=== PATIENT | female | born 1965 | race Hispanic/Latino ===

== ENCOUNTER 2017-05-20 08:43 | Inpatient (IN) | payer MEDICARE ==
[2017-05-20] MEDS ORDERED: Sodium Chloride 0.9% 1,000 ML IV STA ×3 (08:52→10:58)
--- NOTE | 2017-05-20 08:55 | ED PDOC ---
Arrival/HPI - General Chief Complaint: Altered Mental Status Time Seen by Provider: 05/20/17 08:44 Historian: Patient, EMS EM Caveat: Intoxicated - History of Present Illness Narrative History of Present Illness (Text): 05/20/17 08:57 pt was found outside of someone's property/house; pt was found walking on her socks; pt states she had been drinking alcohol and she nearly drinks daily; pt states she is not suicidal/homicidal; pt denied hallucinations - visual/tacile/ auditory; pt was found altered by EMS; pt arrived to ED shivering but responsive ; pt states no other medical complaints currently; pt is here for further eval. pt denied cp/sob/abd pain pt denied fall/trauma/sick contact 05/23/17 17:19 Time/Duration: Prior to Arrival Symptom Onset: Sudden Symptom Course: Unchanged Severity Level: Severe Activities at Onset: Rest Context: Street Past Medical History - Provider Review Nursing Documentation Reviewed: Yes - Travel History Have you recently traveled outside [place] w/in the past 3 mons?: No - Infectious Disease Hx of Infectious Diseases: None - Tetanus Immunization Tetanus Immunization: Unknown - Cardiac Hx Hypertension: No - Pulmonary Hx Tuberculosis: No - Neurological HX Cerebrovascular Accident: No Hx Seizures: No - Hematological/Oncological Hx Cancer: No Hx Hepatitis C: Yes - Genitourinary/Gynecological Hx Sexually Transmitted Diseases: No - Psychiatric Hx Psychophysiologic Disorder: No Hx Anxiety: No Hx Bipolar Disorder: Yes Hx Depression: Yes Hx Emotional Abuse: No Hx Hallucinations: No Hx Panic Disorder: No Hx Post Traumatic Stress Disorder: No Hx Psychosis: No Hx Physical Abuse: No Hx Schizophrenia: No Hx Sexual Abuse: No Hx Substance Use: No - Anesthesia Hx Anesthesia: No Hx Anesthesia Reactions: No Hx Malignant Hyperthermia: No - Suicidal Assessment Feels Threatened In Home Enviroment: No Family/Social History - Physician Review Nursing Documentation Reviewed: Yes Family/Social History: Unknown Family HX Smoking Status: Heavy Smoker > 10 Cigarettes Daily Hx Alcohol Use: Yes Hx Substance Use: No Hx Substance Use Treatment: No Allergies/Home Meds Allergies/Adverse Reactions: Allergies No Known Allergies Allergy (Verified 06/07/15 08:25) Home Medications: Home Meds Medication Instructions Recorded Confirmed ALPRAZolam [Xanax] 1 mg PO TID 03/17/13 05/20/17 Carbamazepine [Tegretol] 200 mg PO BID 03/17/13 05/20/17 Ziprasidone [Geodon] 120 mg PO HS 03/17/13 05/20/17 Escitalopram [Lexapro] 20 mg PO HS 01/09/14 05/20/17 Famotidine [Pepcid] 20 mg PO BID 05/20/17 05/20/17 Ibuprofen [Motrin] 600 mg PO Q6 05/20/17 05/20/17 Review of Systems - Review of Systems Constitutional: Fatigue Eyes: Normal ENT: Normal Respiratory: Normal Cardiovascular: Normal Gastrointestinal: Normal Genitourinary Female: Normal Musculoskeletal: Normal Skin: Normal Neurological: Normal Endocrine: Normal Hemo/Lymphatic: Normal Psychiatric: Normal Physical Exam Vital Signs Reviewed: Yes (severe hypothermia) Vital Signs Temp Pulse Resp BP Pulse Ox 05/20/17 11:00 91.9 F L 85 20 126/55 L 99 05/20/17 10:17 89.6 F L 83 20 123/57 L 100 05/20/17 09:54 83 20 136/49 L 97 05/20/17 09:47 83 20 125/65 89 L 05/20/17 09:12 86.9 F L 76 14 126/98 H 100 05/20/17 09:05 89.6 F L 83 20 136/49 L 90 L Temperature: Hypothermic (rectal temp 86) Blood Pressure: Normal Pulse: Tachycardic Respiratory Rate: Normal Appearance: Positive for: Well-Appearing, Other (uncomfortable, intermittently shivering; alert/awake, cooperative, resting in bed) Pain Distress: Severe Mental Status: Positive for: other (altered, but cooperative, pt is easily arousable to voice; + uncomfortable, + moderate/severe distress) - Systems Exam Head: Present: Atraumatic, Normocephalic Pupils: Present: PERRL, Other (non-pinpoint; no nystagmus, no photophobia) Extroacular Muscles: Present: EOMI Conjunctiva: Present: Normal Mouth: Present: Other (dry oral mucosa, no tongue lacerations) Pharnyx: Present: Normal Neck: Present: Trachea Midline, Other (intact ROM, no step off, no gross deformities). No: MIDLINE TENDERNESS Respiratory/Chest: Present: Clear to Auscultation, Good Air Exchange, Other ( CTA b/l, no w/r/r, no tachypenia, no accessory muscle use noted) Cardiovascular: Present: Normal S1, S2, Other (+ tachycardia, no murmur) Abdomen: Present: Normal Bowel Sounds, Other (well nourished female, no focal tenderness, no masses/rebound/guarding/rigidity) Back: Present: Normal Inspection. No: CVA Tenderness Upper Extremity: Present: Normal Inspection, NORMAL PULSES, Other (strength 5-/ 5 in all limbs, neurovasc intact b/l) Lower Extremity: Present: Normal Inspection, NORMAL PULSES, Other (neurovasc intact b/l) Neurological: Present: Other (GCS ~ 14) Skin: Present: Other (cold to touch, dry, noted dry scabs throughout b/l forearm , b/l feet, no gross bleeding noted, no lacerations noted) Psychiatric: Present: Alert Medical Decision Making ED Course and Treatment: 05/20/17 09:05 Impression: sepsis; hypothermia; alcohol/drug intoxication; depressive state? i have consider all the differential diagnosis regarding pt's chief medical complaints/clinical findings, including but are not limited to: sepsis, hypothermia, alcohol/drug intoxication, depressive state A/P: hypothermia, alcohol exposure - labs - cultures - iv - labs - ua - ekg - xray - observe - supportive care CODE sepsis activated 05/20/17 10:23 Case discussed with ICU attending, whom has been made aware of patient's complaints. Recommends continued IV Fluids and agree with emergency department management. States will arrive to evaluate patient in 30 minutes. 05/20/17 11:[address] Shrestha, hospitalist, whom has been made aware of patient' s medical complaints. Agrees with emergency department management and diagnosis and approves for emergency department disposition to ICU admission. 05/20/2017 10:55 Chest X-ray IMPRESSION: No acute consolidation. Dictator: Daniel Sloan DO 05/23/17 17:22 pt is made aware of her medical results pt is warming up well pt agrees with admission ICU will accept pt to the ICU Re-evaluation Time: 14:00 Reassessment Condition: Improving,but remains with symptoms - Critical Care Critical Care Minutes: 45 minutes Critical Care Time: Excluding Proc Time Narrative Critical Care (Text): 05/23/17 17:23 critical care time: 45min, excluding procedure time, excluding time teaching residents/students/mid-level providers; including initial eval/diagnosis, diagnostic interpretation, re-eval, consultations, final disposition - Lab Interpretations Microbiology Results: Microbiology Results 05/20/17 09:00 Blood Blood Culture - Preliminary NO GROWTH AFTER 3 DAYS 05/20/17 08:45 Blood Blood Culture - Preliminary NO GROWTH AFTER 3 DAYS 05/20/17 09:21 Urine,Catheterized Urine Culture - Final No Growth (<1,000 CFU/ML) Lab Results: 05/20/17 08:45 05/20/17 09:20 Lab Results 05/20/17 09:21: Urine Opiates Screen Negative, Urine Methadone Screen Negative, Ur Barbiturates Screen Negative, Ur Phencyclidine Scrn Negative, Ur Amphetamines Screen Negative, U Benzodiazepines Scrn Positive, U Oth Cocaine Metabols Negative, U Cannabinoids Screen Negative 05/20/17 09:21: Urine HCG, Qual Negative 05/20/17 09:21: Urine Color Yellow, Urine Appearance Clear, Urine pH 6.0, Ur Specific [place] >= 1.030, Urine Protein Trace H, Urine Glucose (UA) 100 H, Urine Ketones Negative, Urine Blood Negative, Urine Nitrate Negative, Urine Bilirubin Negative, Urine Urobilinogen 0.2, Ur Leukocyte Esterase Negative, Urine RBC Negative, Urine WBC 1 - 3, Ur Epithelial Cells 3 - 4, Urine Bacteria Few, Hyaline Casts 0 - 2 05/20/17 09:20: Sodium 140, Chloride 111 H, Potassium 4.2, Carbon Dioxide 21, Anion Gap 12, BUN 16, Creatinine 0.5 L, Est GFR ( Amer) > 60, Est GFR ( Non-Af Amer) > 60, Random Glucose 90, Calcium 8.8, Phosphorus 3.2, Magnesium 2.0 , Total Bilirubin 0.3, AST 32, ALT 38, Alkaline Phosphatase 76, Troponin I < 0.01, NT-Pro-B Natriuret Pep 40.6, Total Protein 7.0, Albumin 3.9, Globulin 3.1 , Albumin/Globulin Ratio 1.3 05/20/17 09:20: pO2 70 H, VBG pH 7.32, VBG pCO2 41.0, VBG HCO3 21.1, VBG Total CO2 22.4, VBG O2 Sat (Calc) 94.2 H, VBG Base Excess -4.8 L, VBG Potassium 4.1, Sodium 140.0, Chloride 110.0 H, Glucose 92, Lactate 2.1, FiO2 21.0, Venous Blood Potassium 4.1 05/20/17 09:20: PT 10.7, INR 0.97, APTT 27.3 05/20/17 08:45: Alcohol, Quantitative < 10 05/20/17 08:45: Salicylates < 1 L, Acetaminophen < 10.0 L 05/20/17 08:45: Carbamazepine < 3 L 05/20/17 08:45: WBC 8.7, RBC 4.78, Hgb 14.8, Hct 44.5, MCV 93.1, MCH 31.0, MCHC 33.3, RDW 14.3, Plt Count 214, MPV 9.4, Gran % 78.0 H, Lymph % (Auto) 15.3 L, Stone % (Auto) 6.0, Eos % (Auto) 0.5 L, Baso % (Auto) 0.2, Gran # 6.81 H, Lymph # 1.3, Stone # 0.5, Eos # 0.0, Baso # 0.02 WNL I have reviewed the lab results: Yes Interpretation: All labs normal - RAD Interpretation Radiology Orders: 05/20/17 08:50 CHEST PORTABLE [RAD] Stat NAD Wine Specialist: Radiologist - EKG Interpretation EKG Interpretation (Text): 05/23/17 17:25 Sinus rhythm at 75 bpm, poor baseline, normal axis, + ectopy, non-specific st-t changes, ABNL EKG; no gross changes compare with old ekg 12/201305/23/17 17:27 Interpreted by ED Physician: Yes Type: 12 lead EKG Comparison: Similar to previous EKG - Medication Orders Current Medication Orders: Discontinued Medications Alprazolam (Xanax) 1 mg PO TID [facility] PRN Reason: Protocol Last Admin: 05/21/17 10:08 Dose: 1 mg Enoxaparin Sodium (Lovenox) 40 mg SC DAILY [facility] PRN Reason: Protocol Last Admin: 05/21/17 10:03 Dose: 40 mg Subcutaneous Administrations Document 05/21/17 10:03 DEL (Rec: 05/21/17 10:04 DEL [facility] [id number]) Charges for Administration # of Subcutaneous Administrations 1 Escitalopram Oxalate (Lexapro) 20 mg PO HS [facility] Last Admin: 05/21/17 00:30 Dose: Not Given Non-Admin Reason: Patient Asleep Hydrocortisone Sodium Succinate (Solu-Cortef) 50 mg IVP ONCE ONE Stop: 05/20/17 10:55 Last Admin: 05/20/17 11:12 Dose: 50 mg IVP Administration Document 05/20/17 11:12 SRE (Rec: 05/20/17 11:12 SRE [id number]) Charges for Administration # of IVP Administrations 1 Hydrocortisone Sodium Succinate (Solu-Cortef) 50 mg IVP Q6 [facility] Last Admin: 05/21/17 05:09 Dose: 50 mg IVP Administration Document 05/21/17 05:09 SRE (Rec: 05/21/17 05:09 SRE [facility] [id number]) Charges for Administration # of IVP Administrations 1 Sodium Chloride (Sodium Chloride 0.9%) 1,000 mls @ 999 mls/hr IV .Q1H1M STA Stop: 05/20/17 09:52 Last Admin: 05/20/17 09:29 Dose: 999 mls/hr eMAR Start Stop Document 05/20/17 09:29 SRE (Rec: 05/20/17 09:31 SRE [id number]) Intravenous Solution Start Date 05/20/17 Start Time 09:00 End Date 05/20/17 End time 10:00 Total Infusion Time 60 Sodium Chloride (Sodium Chloride 0.9%) 1,000 mls @ 999 mls/hr IV .Q1H1M STA Stop: 05/20/17 11:25 Last Admin: 05/20/17 10:25 Dose: 999 mls/hr eMAR Start Stop Document 05/20/17 10:25 SRE (Rec: 05/20/17 10:35 SRE [id number]) Intravenous Solution Start Date 05/20/17 Start Time 10:25 End Date 05/20/17 End time 11:25 Total Infusion Time 60 Sodium Chloride (Sodium Chloride 0.9%) 1,000 mls @ 999 mls/hr IV .Q1H1M STA Stop: 05/20/17 11:58 Last Admin: 05/20/17 11:00 Dose: 999 mls/hr eMAR Start Stop Document 05/20/17 11:00 SRE (Rec: 05/20/17 11:12 SRE [id number]) Intravenous Solution Start Date 05/20/17 Start Time 11:00 End Date 05/20/17 End time 12:00 Total Infusion Time 60 Folic Acid 1 mg/ Thiamine HCl 100 mg/ Multivitamins/Vitamin C 10 ml/ Dextrose 1 ,011.2 mls @ 100 mls/hr IV .Q10H7M [facility] Last Admin: 05/21/17 00:21 Dose: 100 mls/hr eMAR Start Stop Document 05/21/17 00:21 SRE (Rec: 05/21/17 00:21 SRE [facility] [id number]) Intravenous Solution Start Date 05/21/17 Start Time 00:21 Pantoprazole Sodium (Protonix Ec Tab) 40 mg PO DAILY [facility] Last Admin: 05/21/17 10:03 Dose: 40 mg Pneumococcal Polyvalent Vaccine (Pneumovax 23 Vaccine) 0.5 ml IM .ONCE ONE Stop: 05/20/17 13:47 Disposition/Present on Arrival - Present on Arrival Any Indicators Present on Arrival: No History of DVT/PE: No History of Uncontrolled Diabetes: No Urinary Catheter: No History Surgical Site Infection Following: None - Disposition Have Diagnosis and Disposition been Completed?: Yes Diagnosis: Hypothermia, High risk for sepsis, Weakness Disposition: HOSPITALIZED Disposition Time: 12:00 Patient Plan: ICU Condition: FAIR
[2017-05-20 09:20] LABS: BASO # 0.02 K/mm3 (0.0-2.0); BASO % 0.2 % (0.0-3.0); EOS % 0.5 % (1.5-5.0); GRAN # 6.81 (1.4-6.5); HEMOGLOBIN 14.8 g/dL (12.0-16.0); LYMPH # 1.3 (1.2-3.4); LYMPH % 15.3 % (22.0-35.0); MEAN CELL VOLUME 93.1 fl (80.0-105.0); MEAN CORPUSCULAR HGB CONC 33.3 g/dl (31.0-37.0); MEAN PLATELET VOLUME 9.4 fl (7.0-11.0); MONO # 0.5 (0.1-0.6); RBC 4.78 10^6/uL (3.5-6.1); RED CELL DISTRIBUTION WIDTH 14.3 % (11.5-14.5); WHITE BLOOD COUNT 8.7 10^3/ul (4.5-11.0)
[2017-05-20 09:28] LABS: ACETAMINOPHEN < 10.0 ug/ml (10.0-20.0); SALICYLATE < 1 mg/dL (2.0-20.0)
[2017-05-20 09:30] LABS: URINE BILIRUBIN NEGATIVE (NEGATIVE); URINE BLOOD NEGATIVE (NEGATIVE); URINE GLUCOSE (UA) 100 mg/dL (NEGATIVE); URINE LEUKOCYTE ESTERASE NEGATIVE Leu/uL (NEGATIVE); URINE NITRATE NEGATIVE (NEGATIVE); URINE PROTEIN TRACE mg/dL (<30 mg/dL); URINE UROBILINOGEN 0.2 E.U./dL (<1 E.U./dL)
[2017-05-20 09:37] LABS: URINE APPEARANCE CLEAR (CLEAR); URINE COLOR YELLOW (YELLOW)
[2017-05-20 09:45] LABS: ALB/GLOB RATIO 1.3 (1.1-1.8); ALBUMIN 3.9 g/dL (3.0-4.8); ALT/SGPT 38 U/L (7-56); AST/SGOT 32 U/L (14-36); BLOOD UREA NITROGEN 16 mg/dL (7-21); CALCIUM 8.8 mg/dL (8.4-10.5); GFR AFRICAN-AMERICAN > 60; GFR NON-AFRICAN AMERICAN > 60
[2017-05-20 09:48] LABS: URINE BACTERIA FEW (NEG); URINE HYALINE CAST 0 - 2 /hpf; URINE RBC NEGATIVE /hpf (0-2)
[2017-05-20 09:54] LABS: BENZODIAZEPINES, UR POSITIVE (NEGATIVE); OPIATES, UR NEGATIVE (NEGATIVE); PHENCYCLIDINE, UR NEGATIVE (NEGATIVE)
[2017-05-20 09:54] LABS: INR 0.97 (0.93-1.08); PARTIAL THROMBOPLASTIN TIME 27.3 Seconds (25.1-36.5); PROTHROMBIN TIME 10.7 SECONDS (9.4-12.5)
[2017-05-20 09:55] LABS: BARBITURATES, UR NEGATIVE (NEGATIVE)
[2017-05-20 09:57] LABS: B-TYPE NATRIURETIC PEPTIDE 40.6 pg/mL (0-450); TROPONIN I < 0.01 ng/mL
[2017-05-20 10:00] LABS: VENOUS BLOOD GAS BASE EXCESS -4.8 mmol/L (0.0-2.0); VENOUS BLOOD GAS PO2 70 mm/Hg (30-55); VENOUS BLOOD PH 7.32 (7.32-7.43)
--- NOTE | 2017-05-20 10:57 | RAD ---
HISTORY: Sepsis Patient COMPARISON: Comparison made with chest radiograph performed as part of a bilateral rib series dated 06/07/2015. . FINDINGS: LUNGS: No active pulmonary disease. PLEURA: No significant pleural effusion identified, no pneumothorax apparent. CARDIOVASCULAR: Heart size is upper limits of normal. OSSEOUS STRUCTURES: Old healed left 7th rib fracture poorly seen compared to prior exam VISUALIZED UPPER ABDOMEN: Normal. OTHER FINDINGS: None. IMPRESSION: No acute consolidation
--- NOTE | 2017-05-20 11:30 | CARD ---
APPROVED REPORT EKG Measurement Heart [id number] <Conclusion> Sinus rhythm with premature atrial complexes with aberrant conduction Prolonged QT Abnormal ECG
[2017-05-20 12:56] LABS: VENOUS BLOOD GAS PO2 56 mm/Hg (30-55); VENOUS BLOOD PH 7.28 (7.32-7.43)
--- NOTE | 2017-05-20 13:03 | CP.PCM.CON ---
History of Present Illness - History of Present Illness History of Present Illness: Critical Care Consult Note HPI: Patient is 51yo female with PMhx of Psych disorder, ?seizure disorder, presents after EMS was called for AMS. Patient was found walking outside in her socks, unclear as ot amount of clothing she had on. Upon arrival to the ER patient noted to be hypothermic, 86.9 rectal temp, placed on bear hugger and given 2L warmed NS. Pt is currently awake, alert, answers appropriately, rectal temp improving on bear hugger. Denies fever, chills, chest pain, sob, palpitations, LANE, dizziness. No other constitutional symptoms PMHx as above PSHx as above Meds as per EMR Allergies NKDA ROS as per HPI FHx NC Review of Systems - Review of Systems Review of Systems: as per HPI Past Patient History - Infectious Disease Hx of Infectious Diseases: None - Tetanus Immunizations Tetanus Immunization: Unknown - Past Social History Smoking Status: Heavy Smoker > 10 Cigarettes Daily - CARDIAC Hx Hypertension: No - PULMONARY Hx Tuberculosis: No - NEUROLOGICAL HX Cerebrovascular Accident: No Hx Seizures: No - HEMATOLOGICAL/ONCOLOGICAL Hx Cancer: No Hx Hepatitis C: Yes - GENITOURINARY/GYNECOLOGICAL Hx Sexually Transmitted Disorders: No - PSYCHIATRIC Hx Psychophysiologic Disorder: No Hx Anxiety: No Hx Bipolar Disorder: Yes Hx Depression: Yes Hx Emotional Abuse: No Hx Hallucinations: No Hx Panic Symptoms: No Hx Post Traumatic Stress Disorder: No Hx Psychosis: No Hx Physical Abuse: No Hx Schizophrenia: No Hx Sexual Abuse: No Hx Substance Use: No - ANESTHESIA Hx Anesthesia: No Hx Anesthesia Reactions: No Hx Malignant Hyperthermia: No Meds Allergies/Adverse Reactions: Allergies Allergy/AdvReac Type Severity Reaction Status Date / Time No Known Allergies Allergy Verified 06/07/15 08:25 - Medications Medications: Current Medications Enoxaparin Sodium (Lovenox) 40 mg SC DAILY [facility] PRN Reason: Protocol Hydrocortisone Sodium Succinate (Solu-Cortef) 50 mg IVP Q6 [facility] Folic Acid 1 mg/ Thiamine HCl 100 mg/ Multivitamins/Vitamin C 10 ml/ Dextrose 1 ,011.2 mls @ 100 mls/hr IV .Q10H7M [facility] Pantoprazole Sodium (Protonix Ec Tab) 40 mg PO DAILY [facility] Physical Exam - Constitutional Appears: Well, Non-toxic, No Acute Distress - Head Exam Head Exam: NORMAL INSPECTION - Eye Exam Eye Exam: EOMI, Normal appearance - ENT Exam ENT Exam: Mucous Membranes Moist - Neck Exam Neck exam: Positive for: Normal Inspection - Respiratory Exam Respiratory Exam: Clear to Auscultation Bilateral, NORMAL BREATHING PATTERN - Cardiovascular Exam Cardiovascular Exam: REGULAR RHYTHM, +S1, +S2 - GI/Abdominal Exam GI & Abdominal Exam: Normal Bowel Sounds, Soft - Extremities Exam Extremities exam: Positive for: normal inspection - Neurological Exam Neurological exam: Alert, Reflexes Normal Results - Vital Signs Recent Vital Signs: Last Vital Signs Temp 95.4 F L 05/20/17 12:50 Pulse 96 H 05/20/17 12:50 Resp 18 05/20/17 12:50 BP 126/55 L 05/20/17 11:00 Pulse Ox 97 05/20/17 12:50 - Labs Result Diagrams: 05/20/17 08:45 05/20/17 09:20 Labs: Laboratory Results - last 24 hr 05/20/17 11:16 TSH 3rd Generation 1.20 - Imaging and Cardiology Chest x-ray Status: Image reviewed by me, Report reviewed by me Assessment & Plan - Assessment and Plan (Free Text) Assessment: 51yo female a/w hypothermia Hypothermia - currently temp 94.3, improving with bear hugger and warmed NS - patient is awake, alert, answers quesitons appropriately - no overt evidence of infection, normal WBC, Lactate, CXR no consolidation, UA negative, denies fever, chills, cough, dysuria - labs noted - CXR no consolidation Recommend: - supp o2 as needed - leon culture, UCx, BCx, Check Procalcitonin - BP control - IV hydration - check TSH, Free T3, T4, cortisol level - SoluCortef 50mg IV Q6hr - psych consult - confirm home meds - monitor in MICU Critical care time 35 minutes
[2017-05-20] MEDS: Enoxaparin 40 mg Syringe SC SCH (13:14)
[2017-05-20] MEDS: Folic Acid 1 MG, Thiamine 100 MG, Multivitamin (MVI) 10 ML in Dextrose 5% In Water 1,00... IV SCH (13:14)
--- NOTE | 2017-05-20 13:32 | CP.PCM.HP ---
<Lindsay Rojas - Last Filed: 05/20/17 14:15> History of Present Illness - History of Present Illness History of Present Illness: PGY-2 H&P for Hospitalist service 51 yo female with PMH of bipolar, schizopheria disorder, and questionable thyroid disorder, presents after EMS was called for AMS. Patient was found outside of someone's house; she was found walking on her socks and it is unclear as to amount of clothing she had on. Patient stated she had been drinking alcohol and had 3 beers last night. She state that she drinks at least 3 times a weeks. Patient states that she does not recall what happened last night, however she states that she has a history of sleep walking. Patient does have history of hallucination however does not recall any from last night. Upon arrival to the ER patient noted to be hypothermic, 86.9 rectal temp, placed on bear hugger and given 3L warmed NS. Rectal temp improving on bear hugger. Denies fever, chills, chest pain, sob, palpitations, LANE, dizziness. No other constitutional symptoms. Daughter is at bedside. PMH: psh: right knee social history: smokes 10 cig/day, quit 1 week ago, drinks 3-5 beers about 3 times per week, denies illicit drug use family history: mother lung ca, father pancreatic ca allergy: nkda home meds: unsure, will call pharmacy Present on Admission - Present on Admission Any Indicators Present on Admission: No Review of Systems - Constitutional Constitutional: absent: Chills, Fever, Headache, Weight Gain, Weight Loss - EENT Eyes: absent: Change in Vision Nose/Mouth/Throat: absent: Nasal Congestion, Sore Throat - Cardiovascular Cardiovascular: absent: Chest Pain, Irregular Heart Rhythm, Palpitations - Respiratory Respiratory: absent: Cough, Dyspnea - Gastrointestinal Gastrointestinal: absent: Abdominal Pain, Constipation, Diarrhea, Nausea, Vomiting - Genitourinary Genitourinary: absent: Change in Urinary Stream, Difficulty Urinating, Dysuria - Musculoskeletal Musculoskeletal: absent: Arthralgias, Back Pain, Neck Pain, Numbness, Stiffness , Tingling - Integumentary Integumentary: absent: Pruritus, Rash, Skin Ulcer, Striae, Swelling - Neurological Neurological: absent: Dizziness, Numbness, Headaches, Syncope, Weakness - Psychiatric Psychiatric: Abnormal Sleep Pattern, Hallucinations - Hematologic/Lymphatic Hematologic: absent: Easy Bleeding, Easy Bruising Past Patient History - Infectious Disease Hx of Infectious Diseases: None - Tetanus Immunizations Tetanus Immunization: Unknown - Past Social History Smoking Status: Heavy Smoker > 10 Cigarettes Daily - CARDIAC Hx Hypercholesterolemia: Yes (daughter thinks she may have it under control) Hx Hypertension: No Hx Peripheral Edema: Yes (ble +1) - PULMONARY Hx Tuberculosis: No - NEUROLOGICAL HX Cerebrovascular Accident: No Hx Seizures: No - ENDOCRINE/METABOLIC Hx Hypothyroidism: Yes (daughter thinks she may have) Other/Comment: pt's daughter thinks she has hypothroidism, but thyroid medication not on home medication list, unknown if med list is current and daughter does not know what pharmacy the pt fills her meds - HEMATOLOGICAL/ONCOLOGICAL Hx Hepatitis C: Yes - INTEGUMENTARY Other/Comment: dry scabs and multiple skin discoloratins b/l arms, dry scabs b/ l forearms, dry scabs b/l feet and legs, redness r knee, abrasion left knee, frostbite to buttocks, redness noted to right buttock and posterior upper thigh , redness to left buttocks from frostbite, right more than left, tatoo - MUSCULOSKELETAL/RHEUMATOLOGICAL Hx Fractures: Yes (wrist ,daughter unsure which one) Hx Unsteady Gait: Yes - GASTROINTESTINAL Hx Gastroesophageal Reflux: Yes - GENITOURINARY/GYNECOLOGICAL Hx Genitourinary Disorders: Yes (neg mammo 05/23/16 as per daughter) Hx Incontinence: Yes Other/Comment: cervical nabothian cyst as per transvaginal ultrasound from , daughter thinks pt may have had surgery to remove fibroids - PSYCHIATRIC Hx Psychophysiologic Disorder: No Hx Anxiety: No Hx Bipolar Disorder: Yes Hx Depression: Yes Hx Emotional Abuse: No Hx Hallucinations: No Hx Panic Symptoms: No Hx Post Traumatic Stress Disorder: No Hx Psychosis: No Hx Physical Abuse: No Hx Schizophrenia: No Hx Sexual Abuse: No Other/Comment: drinks daily, what and how much unknown daughter stated "She wouldn't tell me anyway." pt is a smoker - SURGICAL HISTORY Hx Orthopedic Surgery: Yes Other/Comment: daughter thinks pt may have had sx to remove fibroids, arthoscopic knee sx over 20 yrs ago daughter unsure which one - ANESTHESIA Hx Anesthesia: No Hx Anesthesia Reactions: No Hx Malignant Hyperthermia: No Meds Allergies/Adverse Reactions: Allergies Allergy/AdvReac Type Severity Reaction Status Date / Time No Known Allergies Allergy Verified 06/07/15 08:25 Physical Exam - Constitutional Appears: No Acute Distress - Head Exam Head Exam: ATRAUMATIC, NORMAL INSPECTION, NORMOCEPHALIC - Eye Exam Eye Exam: EOMI, Normal appearance - ENT Exam ENT Exam: Mucous Membranes Moist - Respiratory Exam Respiratory Exam: Clear to Auscultation Bilateral, NORMAL BREATHING PATTERN. absent: Decreased Breath Sounds, Rales, Rhonchi, Wheezes, Respiratory Distress - Cardiovascular Exam Cardiovascular Exam: REGULAR RHYTHM, +S1, +S2. absent: Tachycardia, Systolic Murmur - GI/Abdominal Exam GI & Abdominal Exam: Normal Bowel Sounds, Soft. absent: Diminished Bowel Sounds , Distended, Firm, Tenderness - Extremities Exam Extremities exam: Positive for: normal inspection. Negative for: pedal edema, tenderness - Neurological Exam Neurological exam: Alert, CN II-XII Intact, Oriented x3 - Skin Skin Exam: Dry, Intact, Normal Color, Warm Results - Vital Signs Recent Vital Signs: Last Vital Signs Temp 95.4 F L 05/20/17 12:50 Pulse 96 H 05/20/17 12:50 Resp 18 05/20/17 12:50 BP 126/55 L 05/20/17 11:00 Pulse Ox 97 05/20/17 12:50 - Labs Result Diagrams: 05/20/17 08:45 05/20/17 09:20 Labs: Laboratory Results - last 24 hr 05/20/17 05/20/17 11:16 12:40 pO2 56 H VBG pH 7.28 L VBG pCO2 44.0 VBG HCO3 20.7 L VBG Total CO2 22.1 VBG O2 Sat (Calc) 90.2 H VBG Base Excess -6.0 L VBG Potassium 3.6 Sodium 143.0 Chloride 114.0 H Glucose 99 Lactate 1.4 FiO2 21.0 TSH 3rd Generation 1.20 Venous Blood Potassium 3.6 Assessment & Plan - Assessment and Plan (Free Text) Assessment: 51 yo female with PMH of bipolar, schizopheria disorder, and questionable thyroid disorder, presents for AMS and hypothermia after being found outside, most likely due to exposure with complication of alcohol use Plan: 1. hypothermia and AMS - most likely due to exposure with complication of alcohol use vs infection vs thyroid - patient received 3L of IVF and was placed on kathleen hugger in ED - TSH within normal limits 1.2 - no leukocytosis, lactate mildly elevated at 2.1, UA and cxr are neg - currently no source of infection - continue solu-cortef 50mg q6 per icu - blood and urine cultures pending 2. alcohol withdrawal - banana bag @100 - ciwa protocol - will hold ativan from now until patient is more response and is withdrawing 3. h/o psych disorders - will call pharmacy for home meds, will continue once speech and swallow evaluation - consider psych eval once patient more alert GI ppx- protonix DVT ppx- lovenox <Norman Arthur - Last Filed: 05/20/17 15:11> Results - Vital Signs Recent Vital Signs: Last Vital Signs Temp 96.8 F L 05/20/17 13:30 Pulse 93 H 05/20/17 13:30 Resp 16 05/20/17 13:30 BP 121/80 05/20/17 13:22 Pulse Ox 100 05/20/17 13:30 - Labs Result Diagrams: 05/20/17 08:45 05/20/17 09:20 Labs: Laboratory Results - last 24 hr 05/20/17 05/20/17 11:16 12:40 pO2 56 H VBG pH 7.28 L VBG pCO2 44.0 VBG HCO3 20.7 L VBG Total CO2 22.1 VBG O2 Sat (Calc) 90.2 H VBG Base Excess -6.0 L VBG Potassium 3.6 Sodium 143.0 Chloride 114.0 H Glucose 99 Lactate 1.4 FiO2 21.0 TSH 3rd Generation 1.20 Venous Blood Potassium 3.6 Attending/Attestation - Attestation I have personally seen and examined this patient.: Yes I have fully participated in the care of the patient.: Yes I have reviewed all pertinent clinical information: Yes Notes (Text): 05/20/17 15:06 51 year old female with past medical history of ?bipolar/schizophrenia who presented with altered mental status and hypothermia after being found outside. She is admitted to ICU. Currently on bear hugger and warmed NS. Her temperature is slowly improving. TSH was normal. No obvious signs of infection (negative UA/CXR, normal lactate and wbc). Will follow up on cultures. Urine drug screen was positive for benzodiazepines. Alcohol level was negative. Continue with stress dose of steroids as per hospital recruiter. Will likely need psychiatry evaluation once patient is more alert. Will need to verify home medications with family +/- pharmacy. Monitor for withdrawal symptoms. Norman Arthur MD Hospitalist.
[2017-05-20 13:45] VITALS: BMI 32.0
[2017-05-20] MEDS ORDERED: Pneumococcal 23-Valent Vaccine IM ONE (13:46)
[2017-05-20] MEDS ORDERED: Influenza Vaccine 60 mcg/0.5 mL SYR (4YR UP) IM ONE (13:46)
--- NOTE | 2017-05-20 14:59 | PCM.SEPTIC ---
Sepsis Progress Note - Reassessment Type Date of Evaluation: 05/20/17 Time of Evaluation: 02:00 Reassessment Type: Non-invasive reassessment - Non Invasive Reassessment Were the most recent vital sign reviewed: Yes Vital Sign (Latest): Temp Pulse Resp BP Pulse Ox 96.8 F L 93 H 16 121/80 100 05/20/17 13:30 05/20/17 13:30 05/20/17 13:30 05/20/17 13:22 05/20/17 13:30 Cardiovascular: Yes: Regular Rate, Rhythm, Chest Non Tender. No: Edema, Murmur , Irregularly Irregular Respiratory: Yes: Normal Breath Sounds. No: Decreased Breath Sounds, Accessory Muscle Use, Crackles, Rales, Rhonchi, Wheezing, Respiratory Distress Capillary Refill: Normal (Less than 2 sec) Skin: Warm, Dry
[2017-05-21] MEDS: Folic Acid 1 MG, Thiamine 100 MG, Multivitamin (MVI) 10 ML in Dextrose 5% In Water 1,00... IV SCH (00:21)
--- NOTE | 2017-05-21 07:10 | CP.PCM.PN ---
Subjective - Date & Time of Evaluation Date of Evaluation: 05/21/17 - Subjective Subjective: Subjective: Physical Examination: Assessment and Plan: Objective - Vital Signs/Intake and Output Vital Signs (last 24 hours): Temp Pulse Resp BP Pulse Ox 98.1 F 91 H 17 122/88 97 05/20/17 22:00 05/21/17 06:00 05/20/17 23:40 05/20/17 23:00 05/20/17 23:40 Intake and Output: 05/21/17 05/21/17 06:59 18:59 Intake Total 1320 Output Total 1900 Balance -580 - Medications Medications: Current Medications Alprazolam (Xanax) 1 mg PO TID [facility] PRN Reason: Protocol Enoxaparin Sodium (Lovenox) 40 mg SC DAILY [facility] PRN Reason: Protocol Last Admin: 05/20/17 13:14 Dose: 40 mg Escitalopram Oxalate (Lexapro) 20 mg PO HS [facility] Last Admin: 05/21/17 00:30 Dose: Not Given Hydrocortisone Sodium Succinate (Solu-Cortef) 50 mg IVP Q6 [facility] Last Admin: 05/21/17 05:09 Dose: 50 mg Folic Acid 1 mg/ Thiamine HCl 100 mg/ Multivitamins/Vitamin C 10 ml/ Dextrose 1 ,011.2 mls @ 100 mls/hr IV .Q10H7M [facility] Last Admin: 05/21/17 00:21 Dose: 100 mls/hr Pantoprazole Sodium (Protonix Ec Tab) 40 mg PO DAILY [facility] - Labs Labs: PT 10.7 SECONDS (9.4-12.5) 05/20/17 09:20 INR 0.97 (0.93-1.08) 05/20/17 09:20 APTT 27.3 Seconds (25.1-36.5) 05/20/17 09:20
[2017-05-21 07:21] LABS: BASO # 0.01 K/mm3 (0.0-2.0); BASO % 0.1 % (0.0-3.0); EOS # 0.1 (0.0-0.7); EOS % 0.6 % (1.5-5.0); GRAN # 6.1 (1.4-6.5); GRAN % 75.9 % (50.0-68.0); HEMOGLOBIN 13.4 g/dL (12.0-16.0); LYMPH # 1.3 (1.2-3.4); LYMPH % 16.7 % (22.0-35.0); MEAN CELL VOLUME 91.6 fl (80.0-105.0); MEAN CORPUSCULAR HEMOGLOBIN 30.3 pg (25.0-35.0); MEAN CORPUSCULAR HGB CONC 33.1 g/dl (31.0-37.0); MEAN PLATELET VOLUME 9.5 fl (7.0-11.0); MONO # 0.5 (0.1-0.6); MONO % 6.7 % (1.0-6.0); RBC 4.42 10^6/uL (3.5-6.1); RED CELL DISTRIBUTION WIDTH 14.5 % (11.5-14.5)
[2017-05-21 07:33] LABS: ALB/GLOB RATIO 1.1 (1.1-1.8); ALBUMIN 3.4 g/dL (3.0-4.8); ALT/SGPT 29 U/L (7-56); AST/SGOT 32 U/L (14-36); BLOOD UREA NITROGEN 8 mg/dL (7-21); CALCIUM 8.8 mg/dL (8.4-10.5); GFR AFRICAN-AMERICAN > 60; GFR NON-AFRICAN AMERICAN > 60
[2017-05-21 08:31] VITALS: TEMP 98.2
[2017-05-21] MEDS ORDERED: Pantoprazole 40 mg EC Tab PO SCH (10:00)
[2017-05-21] MEDS: Enoxaparin 40 mg Syringe SC SCH (10:03)
[2017-05-21 10:31] VITALS: BP 111/74; PULSE 99; RESP 57; O2SAT 97
--- NOTE | 2017-05-21 11:21 | CP.PCM.PN ---
Subjective - Date & Time of Evaluation Date of Evaluation: 05/21/17 Time of Evaluation: 07:50 - Subjective Subjective: Pt seen and examined, reports to be feeling well, awake, alert, NAD, requesting to be discharged, Objective - Vital Signs/Intake and Output Vital Signs (last 24 hours): Temp Pulse Resp BP Pulse Ox 98.2 F 99 H 57 H 111/74 97 05/21/17 08:00 05/21/17 10:10 05/21/17 10:10 05/21/17 10:00 05/21/17 10:20 Intake and Output: 05/21/17 05/21/17 06:59 18:59 Intake Total 1320 Output Total 1900 Balance -580 - Medications Medications: Current Medications Alprazolam (Xanax) 1 mg PO TID [facility] PRN Reason: Protocol Last Admin: 05/21/17 10:08 Dose: 1 mg Enoxaparin Sodium (Lovenox) 40 mg SC DAILY [facility] PRN Reason: Protocol Last Admin: 05/21/17 10:03 Dose: 40 mg Escitalopram Oxalate (Lexapro) 20 mg PO HS [facility] Last Admin: 05/21/17 00:30 Dose: Not Given Hydrocortisone Sodium Succinate (Solu-Cortef) 50 mg IVP Q6 [facility] Last Admin: 05/21/17 05:09 Dose: 50 mg Folic Acid 1 mg/ Thiamine HCl 100 mg/ Multivitamins/Vitamin C 10 ml/ Dextrose 1 ,011.2 mls @ 100 mls/hr IV .Q10H7M [facility] Last Admin: 05/21/17 00:21 Dose: 100 mls/hr Pantoprazole Sodium (Protonix Ec Tab) 40 mg PO DAILY [facility] Last Admin: 05/21/17 10:03 Dose: 40 mg - Labs Labs: 05/21/17 06:20 05/21/17 06:20 PT 10.7 SECONDS (9.4-12.5) 05/20/17 09:20 INR 0.97 (0.93-1.08) 05/20/17 09:20 APTT 27.3 Seconds (25.1-36.5) 05/20/17 09:20 - Constitutional Appears: Well, Non-toxic, No Acute Distress - Eye Exam Eye Exam: Normal appearance - ENT Exam ENT Exam: Mucous Membranes Moist - Respiratory Exam Respiratory Exam: Clear to Ausculation Bilateral, NORMAL BREATHING PATTERN - Cardiovascular Exam Cardiovascular Exam: REGULAR RHYTHM, +S1, +S2 - GI/Abdominal Exam GI & Abdominal Exam: Soft, Normal Bowel Sounds - Back Exam Back Exam: NORMAL INSPECTION - Neurological Exam Neurological Exam: Alert, Awake, Oriented x3 Assessment and Plan - Assessment and Plan (Free Text) Assessment: 51yo female a/w hypothermia Hypothermia, resolved - currently afebrile, HD stable, comfortable, AAOX3 - no overt evidence of infection, normal WBC, Lactate, CXR no consolidation, UA negative, denies fever, chills, cough, dysuria - labs noted - CXR no consolidation Recommend: - supp o2 as needed - leon culture, UCx, BCx, Check Procalcitonin - IV hydration - SoluCortef 50mg IV Q8hr, taper - psych consult - confirm home meds - stable, transfer to regional medical floor
--- NOTE | 2017-05-21 12:18 | CP.PCM.DIS ---
<Shayne Caballero - Last Filed: 05/21/17 12:08> Provider - Provider Date of Admission: 05/20/17 10:59 Attending physician: Idania Shrestha MD Time Spent in preparation of Discharge (in minutes): 45 Diagnosis - Discharge Diagnosis (1) Hypothermia Status: Resolved Priority: Medium (2) Altered mental status Status: Resolved Priority: Medium (3) History of bipolar disorder Status: Chronic Priority: Medium (4) History of schizophrenia Status: Chronic Priority: Medium Hospital Course - Lab Results Lab Results: Most Recent Lab Values WBC 8.0 10^3/ul (4.5-11.0) 05/21/17 06:20 RBC 4.42 10^6/uL (3.5-6.1) 05/21/17 06:20 Hgb 13.4 g/dL (12.0-16.0) 05/21/17 06:20 Hct 40.5 % (36.0-48.0) 05/21/17 06:20 MCV 91.6 fl (80.0-105.0) 05/21/17 06:20 MCH 30.3 pg (25.0-35.0) 05/21/17 06:20 MCHC 33.1 g/dl (31.0-37.0) 05/21/17 06:20 RDW 14.5 % (11.5-14.5) 05/21/17 06:20 Plt Count 262 10^3/uL (120.0-450.0) 05/21/17 06:20 MPV 9.5 fl (7.0-11.0) 05/21/17 06:20 Gran % 75.9 % (50.0-68.0) H 05/21/17 06:20 Lymph % (Auto) 16.7 % (22.0-35.0) L 05/21/17 06:20 Lassen % (Auto) 6.7 % (1.0-6.0) H 05/21/17 06:20 Eos % (Auto) 0.6 % (1.5-5.0) L 05/21/17 06:20 Baso % (Auto) 0.1 % (0.0-3.0) 05/21/17 06:20 Gran # 6.10 (1.4-6.5) 05/21/17 06:20 Lymph # 1.3 (1.2-3.4) 05/21/17 06:20 Lassen # 0.5 (0.1-0.6) 05/21/17 06:20 Eos # 0.1 (0.0-0.7) 05/21/17 06:20 Baso # 0.01 K/mm3 (0.0-2.0) 05/21/17 06:20 PT 10.7 SECONDS (9.4-12.5) 05/20/17 09:20 INR 0.97 (0.93-1.08) 05/20/17 09:20 APTT 27.3 Seconds (25.1-36.5) 05/20/17 09:20 pO2 56 mm/Hg (30-55) H 05/20/17 12:40 VBG pH 7.28 (7.32-7.43) L 05/20/17 12:40 VBG pCO2 44.0 (40-60) 05/20/17 12:40 VBG HCO3 20.7 mmol/l (21-28) L 05/20/17 12:40 VBG Total CO2 22.1 mmol.L (22-28) 05/20/17 12:40 VBG O2 Sat (Calc) 90.2 % (40-65) H 05/20/17 12:40 VBG Base Excess -6.0 mmol/L (0.0-2.0) L 05/20/17 12:40 VBG Potassium 3.6 mmol/L (3.6-5.2) 05/20/17 12:40 Sodium 143.0 mmol/L (132-148) 05/20/17 12:40 Chloride 114.0 mmol/L (98-107) H 05/20/17 12:40 Glucose 99 mg/dl (65-105) 05/20/17 12:40 Lactate 1.4 mmol/L (0.7-2.1) 05/20/17 12:40 FiO2 21.0 % 05/20/17 12:40 Sodium 142 mmol/L (132-148) 05/21/17 06:20 Potassium 3.7 mmol/L (3.6-5.0) 05/21/17 06:20 Chloride 111 mmol/L (98-107) H 05/21/17 06:20 Carbon Dioxide 23 mmol/L (21-33) 05/21/17 06:20 Anion Gap 12 (10-20) 05/21/17 06:20 BUN 8 mg/dL (7-21) 05/21/17 06:20 Creatinine 0.6 mg/dl (0.7-1.2) L 05/21/17 06:20 Est GFR ( Amer) > 60 05/21/17 06:20 Est GFR (Non-Af Amer) > 60 05/21/17 06:20 Random Glucose 115 mg/dL (70-110) H 05/21/17 06:20 Calcium 8.8 mg/dL (8.4-10.5) 05/21/17 06:20 Phosphorus 3.2 mg/dL (2.5-4.5) 05/20/17 09:20 Magnesium 2.0 mg/dL (1.7-2.2) 05/20/17 09:20 Total Bilirubin 0.5 mg/dL (0.2-1.3) 05/21/17 06:20 AST 32 U/L (14-36) 05/21/17 06:20 ALT 29 U/L (7-56) 05/21/17 06:20 Alkaline Phosphatase 55 U/L (38-126) 05/21/17 06:20 Troponin I < 0.01 ng/mL 05/20/17 09:20 NT-Pro-B Natriuret Pep 40.6 pg/mL (0-450) 05/20/17 09:20 Total Protein 6.5 g/dL (5.8-8.3) 05/21/17 06:20 Albumin 3.4 g/dL (3.0-4.8) 05/21/17 06:20 Globulin 3.1 gm/dL 05/21/17 06:20 Albumin/Globulin Ratio 1.1 (1.1-1.8) 05/21/17 06:20 TSH 3rd Generation 1.20 mIU/mL (0.46-4.68) 05/20/17 11:16 Venous Blood Potassium 3.6 mmol/L (3.6-5.2) 05/20/17 12:40 Urine Color Yellow (YELLOW) 05/20/17 09:21 Urine Appearance Clear (CLEAR) 05/20/17 09:21 Urine pH 6.0 (4.7-8.0) 05/20/17 09:21 Ur Specific [place] >= 1.030 (1.005-1.035) 05/20/17 09:21 Urine Protein Trace mg/dL (<30 mg/dL) H 05/20/17 09:21 Urine Glucose (UA) 100 mg/dL (NEGATIVE) H 05/20/17 09:21 Urine Ketones Negative mg/dL (NEGATIVE) 05/20/17 09:21 Urine Blood Negative (NEGATIVE) 05/20/17 09:21 Urine Nitrate Negative (NEGATIVE) 05/20/17 09:21 Urine Bilirubin Negative (NEGATIVE) 05/20/17 09:21 Urine Urobilinogen 0.2 E.U./dL (<1 E.U./dL) 05/20/17 09:21 Ur Leukocyte Esterase Negative Claudine/uL (NEGATIVE) 05/20/17 09:21 Urine RBC Negative /hpf (0-2) 05/20/17 09:21 Urine WBC 1 - 3 /hpf (0-6) 05/20/17 09:21 Ur Epithelial Cells 3 - 4 /hpf (0-5) 05/20/17 09:21 Urine Bacteria Few (NEG) 05/20/17 09:21 Hyaline Casts 0 - 2 /hpf 05/20/17 09:21 Urine HCG, Qual Negative (NEGATIVE) 05/20/17 09:21 Salicylates < 1 mg/dL (2.0-20.0) L 05/20/17 08:45 Urine Opiates Screen Negative (NEGATIVE) 05/20/17 09:21 Urine Methadone Screen Negative (NEGATIVE) 05/20/17 09:21 Acetaminophen < 10.0 ug/ml (10.0-20.0) L 05/20/17 08:45 Ur Barbiturates Screen Negative (NEGATIVE) 05/20/17 09:21 Carbamazepine < 3 ug/mL (4.0-10.0) L 05/20/17 08:45 Ur Phencyclidine Scrn Negative (NEGATIVE) 05/20/17 09:21 Ur Amphetamines Screen Negative (NEGATIVE) 05/20/17 09:21 U Benzodiazepines Scrn Positive (NEGATIVE) 05/20/17 09:21 U Oth Cocaine Metabols Negative (NEGATIVE) 05/20/17 09:21 U Cannabinoids Screen Negative (NEGATIVE) 05/20/17 09:21 Alcohol, Quantitative < 10 mg/dL (0-10) 05/20/17 08:45 - Hospital Course Hospital Course: Patient is a 51 year old female with PMH of bipolar, schizopheria disorder, and questionable thyroid disorder and Hep C who was admitted for evaluation and treatment for AMS. With the use of physical examinations, lab work, and imaging the patient was diagnosed with and treated for hypothermia, alcohol withdrawal, along with the patients chronic medical conditions. During their hospital stay the patient was seen by the critical care team and psychiatry whose recommendations were both appreciated and utilized in the care for this patient. During their hospital stay the patient underwent warming treatment with warm IVF and the kathleen hugger system. Patients EKG and CXR were reviewed, appreciated, and utilized in the management of the patients clinical course. Patient desired to leave against medical advice due to social issues. Patient was deemed to have mental capacity by psychiatry. Patient was educated on the risks and benefits of leaving at this time without being medically cleared. Patient both understands and appreciates that leaving against medical advice can increase his risk of both morbidity and mortality. Furthermore, the patient is instructed to return to the emergency room for evaluation of intractable headache, fever, chills, dizziness, chest pain, shortness of breath, abdominal pain, nausea, vomiting, diarrhea, constipation, and urinary symptoms. This is a brief summary of the patients hospital course. Please see patient chart for full details. Discharge Exam - Head Exam Head Exam: ATRAUMATIC, NORMAL INSPECTION, NORMOCEPHALIC - Additional Findings Additional findings: General: No acute distress Head: atraumatic normocephalic Eyes: EOMI, non icteric Neck: supple Heart: +s1 +s2, Lungs: CTA bilaterally, no rales, no rhonchi, no wheezing Abdomen: soft, not tender to palpation, no organomegaly, + bowel sounds x 4 Neuro: AAO x 3, CN II- XII intact, muscle strength 5/5 throughout, Patient is awake, alert, responds to verbal stimuli, answers questions appropriately, follows commands, and moves extremities past midline Extremities: no edema Skin: warm and dry Discharge Plan - Follow Up Plan Condition: FAIR Disposition: AGAINST MEDICAL ADVICE Patient education suggested?: Yes Additional Instructions: Patient Instructions: Follow up with PMD and referrals within three to five days from discharge. Return to the emergency room for evaluation of intractable headache, fever, chills, dizziness, chest pain, shortness of breath, abdominal pain, nausea, vomiting, diarrhea, constipation, and urinary symptoms. <Norman Arthur A - Last Filed: 05/21/17 14:17> Provider - Provider Date of Admission: 05/20/17 10:59 Attending physician: Idania Shrestha MD Hospital Course - Lab Results Lab Results: Most Recent Lab Values WBC 8.0 10^3/ul (4.5-11.0) 05/21/17 06:20 RBC 4.42 10^6/uL (3.5-6.1) 05/21/17 06:20 Hgb 13.4 g/dL (12.0-16.0) 05/21/17 06:20 Hct 40.5 % (36.0-48.0) 05/21/17 06:20 MCV 91.6 fl (80.0-105.0) 05/21/17 06:20 MCH 30.3 pg (25.0-35.0) 05/21/17 06:20 MCHC 33.1 g/dl (31.0-37.0) 05/21/17 06:20 RDW 14.5 % (11.5-14.5) 05/21/17 06:20 Plt Count 262 10^3/uL (120.0-450.0) 05/21/17 06:20 MPV 9.5 fl (7.0-11.0) 05/21/17 06:20 Gran % 75.9 % (50.0-68.0) H 05/21/17 06:20 Lymph % (Auto) 16.7 % (22.0-35.0) L 05/21/17 06:20 Lassen % (Auto) 6.7 % (1.0-6.0) H 05/21/17 06:20 Eos % (Auto) 0.6 % (1.5-5.0) L 05/21/17 06:20 Baso % (Auto) 0.1 % (0.0-3.0) 05/21/17 06:20 Gran # 6.10 (1.4-6.5) 05/21/17 06:20 Lymph # 1.3 (1.2-3.4) 05/21/17 06:20 Lassen # 0.5 (0.1-0.6) 05/21/17 06:20 Eos # 0.1 (0.0-0.7) 05/21/17 06:20 Baso # 0.01 K/mm3 (0.0-2.0) 05/21/17 06:20 PT 10.7 SECONDS (9.4-12.5) 05/20/17 09:20 INR 0.97 (0.93-1.08) 05/20/17 09:20 APTT 27.3 Seconds (25.1-36.5) 05/20/17 09:20 pO2 56 mm/Hg (30-55) H 05/20/17 12:40 VBG pH 7.28 (7.32-7.43) L 05/20/17 12:40 VBG pCO2 44.0 (40-60) 05/20/17 12:40 VBG HCO3 20.7 mmol/l (21-28) L 05/20/17 12:40 VBG Total CO2 22.1 mmol.L (22-28) 05/20/17 12:40 VBG O2 Sat (Calc) 90.2 % (40-65) H 05/20/17 12:40 VBG Base Excess -6.0 mmol/L (0.0-2.0) L 05/20/17 12:40 VBG Potassium 3.6 mmol/L (3.6-5.2) 05/20/17 12:40 Sodium 143.0 mmol/L (132-148) 05/20/17 12:40 Chloride 114.0 mmol/L (98-107) H 05/20/17 12:40 Glucose 99 mg/dl (65-105) 05/20/17 12:40 Lactate 1.4 mmol/L (0.7-2.1) 05/20/17 12:40 FiO2 21.0 % 05/20/17 12:40 Sodium 142 mmol/L (132-148) 05/21/17 06:20 Potassium 3.7 mmol/L (3.6-5.0) 05/21/17 06:20 Chloride 111 mmol/L (98-107) H 05/21/17 06:20 Carbon Dioxide 23 mmol/L (21-33) 05/21/17 06:20 Anion Gap 12 (10-20) 05/21/17 06:20 BUN 8 mg/dL (7-21) 05/21/17 06:20 Creatinine 0.6 mg/dl (0.7-1.2) L 05/21/17 06:20 Est GFR ( Amer) > 60 05/21/17 06:20 Est GFR (Non-Af Amer) > 60 05/21/17 06:20 Random Glucose 115 mg/dL (70-110) H 05/21/17 06:20 Calcium 8.8 mg/dL (8.4-10.5) 05/21/17 06:20 Phosphorus 3.2 mg/dL (2.5-4.5) 05/20/17 09:20 Magnesium 2.0 mg/dL (1.7-2.2) 05/20/17 09:20 Total Bilirubin 0.5 mg/dL (0.2-1.3) 05/21/17 06:20 AST 32 U/L (14-36) 05/21/17 06:20 ALT 29 U/L (7-56) 05/21/17 06:20 Alkaline Phosphatase 55 U/L (38-126) 05/21/17 06:20 Troponin I < 0.01 ng/mL 05/20/17 09:20 NT-Pro-B Natriuret Pep 40.6 pg/mL (0-450) 05/20/17 09:20 Total Protein 6.5 g/dL (5.8-8.3) 05/21/17 06:20 Albumin 3.4 g/dL (3.0-4.8) 05/21/17 06:20 Globulin 3.1 gm/dL 05/21/17 06:20 Albumin/Globulin Ratio 1.1 (1.1-1.8) 05/21/17 06:20 TSH 3rd Generation 1.20 mIU/mL (0.46-4.68) 05/20/17 11:16 Venous Blood Potassium 3.6 mmol/L (3.6-5.2) 05/20/17 12:40 Urine Color Yellow (YELLOW) 05/20/17 09:21 Urine Appearance Clear (CLEAR) 05/20/17 09:21 Urine pH 6.0 (4.7-8.0) 05/20/17 09:21 Ur Specific [place] >= 1.030 (1.005-1.035) 05/20/17 09:21 Urine Protein Trace mg/dL (<30 mg/dL) H 05/20/17 09:21 Urine Glucose (UA) 100 mg/dL (NEGATIVE) H 05/20/17 09:21 Urine Ketones Negative mg/dL (NEGATIVE) 05/20/17 09:21 Urine Blood Negative (NEGATIVE) 05/20/17 09:21 Urine Nitrate Negative (NEGATIVE) 05/20/17 09:21 Urine Bilirubin Negative (NEGATIVE) 05/20/17 09:21 Urine Urobilinogen 0.2 E.U./dL (<1 E.U./dL) 05/20/17 09:21 Ur Leukocyte Esterase Negative Claudine/uL (NEGATIVE) 05/20/17 09:21 Urine RBC Negative /hpf (0-2) 05/20/17 09:21 Urine WBC 1 - 3 /hpf (0-6) 05/20/17 09:21 Ur Epithelial Cells 3 - 4 /hpf (0-5) 05/20/17 09:21 Urine Bacteria Few (NEG) 05/20/17 09:21 Hyaline Casts 0 - 2 /hpf 05/20/17 09:21 Urine HCG, Qual Negative (NEGATIVE) 05/20/17 09:21 Salicylates < 1 mg/dL (2.0-20.0) L 05/20/17 08:45 Urine Opiates Screen Negative (NEGATIVE) 05/20/17 09:21 Urine Methadone Screen Negative (NEGATIVE) 05/20/17 09:21 Acetaminophen < 10.0 ug/ml (10.0-20.0) L 05/20/17 08:45 Ur Barbiturates Screen Negative (NEGATIVE) 05/20/17 09:21 Carbamazepine < 3 ug/mL (4.0-10.0) L 05/20/17 08:45 Ur Phencyclidine Scrn Negative (NEGATIVE) 05/20/17 09:21 Ur Amphetamines Screen Negative (NEGATIVE) 05/20/17 09:21 U Benzodiazepines Scrn Positive (NEGATIVE) 05/20/17 09:21 U Oth Cocaine Metabols Negative (NEGATIVE) 05/20/17 09:21 U Cannabinoids Screen Negative (NEGATIVE) 05/20/17 09:21 Alcohol, Quantitative < 10 mg/dL (0-10) 05/20/17 08:45 Attending/Attestation - Attestation I have personally seen and examined this patient.: Yes I have fully participated in the care of the patient.: Yes I have reviewed all pertinent clinical information, including history, physical exam and plan: Yes Notes (Text): 05/21/17 14:14 51 year old female with past medical history of ?bipolar/schizophrenia who presented with altered mental status and hypothermia after being found outside. She was admitted to ICU and put on bear hugger with warmed NS. Her temperature has improved to normal by this morning. TSH was normal. She had no obvious signs of infection (negative UA/CXR, normal lactate and wbc). Urine drug screen was positive for benzodiazepines. Alcohol level was negative. Today patient is alert to her baseline. She has no signs of withdrawal. She is requesting to go home because she has upcoming appointments. She was seen by psychiatry and deemed competent to sign out. Patient signed out against medical advice. She was advised to follow up with her pmd and psychiatrist. She was counselled on alcohol abstinence. Norman Arthur MD Hospitalist.
--- NOTE | 2017-05-21 20:16 | CON ---
HISTORY OF PRESENT ILLNESS: The patient is a 51-year-old female with self-reported history of mental illness, most likely the patient has history of depression and anxiety, possible alcohol problems. The patient was found outside, confused. The patient was admitted to ICU. Psych consult was called for evaluation of change in mental status and because the patient has history of mental illness. The patient was seen and examined today. The patient presented to be alert and oriented in self, time and place. The patient is aware of the circumstances of her admission to the ICU. The patient said "I was confused, I was outside and police brought me in." The patient reported that she was drinking "2 beers" and the patient referred that as "it was my mistake." The patient reported that she has history of depression and anxiety and history of hallucinations. The patient reported that she sees Dr. Alberto Segura in the community, last time it was last Saturday. The patient reported that she is compliant with the medications and followup appointments. The patient reported her next appointment with Dr. Segura is on 06/13/2017. The patient said that she has all of the prescriptions and refills with her. The patient reported that she lives in [place] with her boyfriend of 3 years. The patient reported that she has good relationship with him. The patient said that she sees Dr. Pabon, infectious disease for her hepatitis every 6 months and her followup appointment is sometime tomorrow. The patient also says that she sees Dr. Nguyen for her thyroid problems. At present moment, the patient denied being depressed. Denied thoughts of harming herself or others. The patient denied hearing voices or seeing things. The patient reported that she has good appetite and sleep. PAST PSYCHIATRIC HISTORY: The patient said that she was hospitalized into the psychiatric inpatient unit five times, most recent was in 2009 and last time problem was confusion and hallucinations. This investment underwriter reviewed vital signs, seems to be stable, but the patient is having tachycardia, pulse ranged from 100 to 99, blood pressure 111/74, respiration is 16, oxygen saturation is 97. MEDICATIONS: Reviewed, the patient is on Xanax 1 mg three times a day, Lovenox, Lexapro 20 mg at nighttime, Protonix and hydrocortisone. LABORATORY DATA: Labs reviewed. Toxicology was positive for benzodiazepines. MENTAL STATUS EXAM: The patient presented to be alert and oriented, pleasant, cooperative with a strong body odor, but acceptable personal hygiene. Intermittent eye contact. Speech was normal rate, tone, quality and quantity. Mood described "I feel better." Affect was constricted, but reactive. Mood congruent. Thought process seems to be concrete. Thought content, the patient denied visual, auditory, tactile hallucinations. Denied paranoid ideation. The patient denied thoughts of harming herself or others. Denied intent or plan. Insight and judgment seems to be improving and impulses are well controlled. Collaterals from the nursing staff as well as marine cargo inspector, the patient has not exceeded any aggressive or agitated behavior, compliant with the treatment and medications, no behavioral issues. IMPRESSION: History of mental illness, history of admissions to the psychiatric inpatient unit, most likely the patient has history of depression, anxiety, rule out schizoaffective disorder. The patient also most likely has alcohol use problems. The patient was admitted to the medical site, status post change in mental status and the patient was wandering in the streets. At present moment, the patient feels much better. PLAN: The patient deemed not to be in danger to self or others. The patient pose no imminent danger to self or others. The patient has followup appointment with Dr. Alberto Segura at the end of the month, last appointment was last 05/17/2017. The patient has followup appointment on 06/13/2017. The patient reported that she is on Lexapro and Latuda. The patient said that she has all of her prescriptions with her as well as her pharmacy is [facility]. The patient denied thoughts of harming herself or others. This investment underwriter will sign off from this case.. Should you have any questions, give me a call back. Thank you very much for letting me participate in care of your patient. Tania Velez MD
== END 2017-05-21 13:30 | disposition left against medical advice (07) | DRG 923 ==
LOC: ED 08:43 → ERH 10:59 → ICU 11:31
PROVIDERS: ADMIT Hospitalist; ATTEND Hospitalist
DX: T68.XXXA Hypothermia, initial encounter (principal); F20.9 Schizophrenia, unspecified; K75.9 Inflammatory liver disease, unspecified; F10.239 Alcohol dependence with withdrawal, unspecified; E03.9 Hypothyroidism, unspecified; E78.00 Pure hypercholesterolemia, unspecified; F31.9 Bipolar disorder, unspecified; G40.909 Epilepsy, unspecified, not intractable, without status epilepticus; K21.9 Gastro-esophageal reflux disease without esophagitis; X31.XXXA Exposure to excessive natural cold, initial encounter; Z79.899 Other long term (current) drug therapy; Z80.0 Family history of malignant neoplasm of digestive organs; Z80.1 Family history of malignant neoplasm of trachea, bronchus and lung; F17.210 Nicotine dependence, cigarettes, uncomplicated; R40.2412 Glasgow coma scale score 13-15, at arrival to emergency department

== ENCOUNTER 2018-03-01 21:11 | Emergency (ER) | payer MEDICARE ==
[2018-03-01 21:27] VITALS: RESP 18; TEMP 97.9
[2018-03-01 22:07] LABS: BASO # 0.04 K/mm3 (0.0-2.0); BASO % 0.5 % (0.0-3.0); EOS # 0.3 (0.0-0.7); EOS % 3.8 % (1.5-5.0); GRAN # 4.19 (1.4-6.5); GRAN % 56.4 % (50.0-68.0); HEMOGLOBIN 13.6 g/dL (12.0-16.0); LYMPH # 2.4 (1.2-3.4); LYMPH % 32.4 % (22.0-35.0); MEAN CELL VOLUME 93.8 fl (80.0-105.0); MEAN CORPUSCULAR HEMOGLOBIN 31.5 pg (25.0-35.0); MEAN CORPUSCULAR HGB CONC 33.6 g/dl (31.0-37.0); MEAN PLATELET VOLUME 9.1 fl (7.0-11.0); MONO # 0.5 (0.1-0.6); MONO % 6.9 % (1.0-6.0); RBC 4.32 10^6/uL (3.5-6.1); RED CELL DISTRIBUTION WIDTH 15.1 % (11.5-14.5); WHITE BLOOD COUNT 7.4 10^3/ul (4.5-11.0)
[2018-03-01 22:15] LABS: ALB/GLOB RATIO 1.2 (1.1-1.8); ALBUMIN 3.8 g/dL (3.0-4.8); BLOOD UREA NITROGEN 16 mg/dL (7-21); CALCIUM 8.8 mg/dL (8.4-10.5); GFR NON-AFRICAN AMERICAN > 60
[2018-03-01 22:29] LABS: ALT/SGPT 25 U/L (7-56); AST/SGOT 33 U/L (14-36)
--- NOTE | 2018-03-01 22:45 | ED PDOC ---
Arrival/HPI - General Chief Complaint: Alcohol Ingestion Time Seen by Provider: 03/01/18 21:24 Historian: Patient - History of Present Illness Narrative History of Present Illness (Text): 03/01/18 22:45 52 yo F brought in for etoh intoxication. She has no complaints, denies any trauma or injury. HPI is limited due to the fact that the patient is intoxicated. Past Medical History - Infectious Disease Hx of Infectious Diseases: None - Tetanus Immunization Tetanus Immunization: Unknown - Cardiac Hx Hypertension: No - Pulmonary Hx Tuberculosis: No - Neurological HX Cerebrovascular Accident: No Hx Seizures: No - Endocrine/Metabolic Hx Hypothyroidism: Yes (daughter thinks she may have) Other/Comment: pt's daughter thinks she has hypothroidism, but thyroid medication not on home medication list, unknown if med list is current and daughter does not know what pharmacy the pt fills her meds - Hematological/Oncological Hx Cancer: No Hx Hepatitis C: Yes - Integumentary Other/Comment: dry scabs and multiple skin discoloratins b/l arms, dry scabs b/l forearms, dry scabs b/l feet and legs, redness r knee, abrasion left knee, frostbite to buttocks, redness noted to right buttock and posterior upper thigh, redness to left buttocks from frostbite, right more than left, tatoo - Musculoskeletal/Rheumatological Hx Fractures: Yes (wrist ,daughter unsure which one) Hx Unsteady Gait: Yes - Gastrointestinal Hx Gastroesophageal Reflux: Yes - Genitourinary/Gynecological Hx Sexually Transmitted Diseases: No - Psychiatric Hx Psychophysiologic Disorder: No Hx Anxiety: No Hx Bipolar Disorder: Yes Hx Depression: Yes Hx Emotional Abuse: No Hx Hallucinations: No Hx Panic Disorder: No Hx Post Traumatic Stress Disorder: No Hx Psychosis: No Hx Physical Abuse: No Hx Schizophrenia: No Hx Sexual Abuse: No Hx Substance Use: No - Surgical History Hx Orthopedic Surgery: Yes Other/Comment: daughter thinks pt may have had sx to remove fibroids, arthoscopic knee sx over 20 yrs ago daughter unsure which one - Anesthesia Hx Anesthesia: No Hx Anesthesia Reactions: No Hx Malignant Hyperthermia: No - Suicidal Assessment Feels Threatened In Home Enviroment: No Family/Social History Family/Social History: Unknown Family HX Smoking Status: Heavy Smoker > 10 Cigarettes Daily Hx Alcohol Use: Yes Frequency of alcohol use: Few days per week Hx Substance Use: No Hx Substance Use Treatment: No Allergies/Home Meds Allergies/Adverse Reactions: Allergies No Known Allergies Allergy (Verified 06/07/15 08:25) Home Medications: Home Meds Medication Instructions Recorded Confirmed ALPRAZolam [Xanax] 1 mg PO TID 03/17/13 05/20/17 Carbamazepine [Tegretol] 200 mg PO BID 03/17/13 05/20/17 Ziprasidone [Geodon] 120 mg PO HS 03/17/13 05/20/17 Escitalopram [Lexapro] 20 mg PO HS 01/09/14 05/20/17 Famotidine [Pepcid] 20 mg PO BID 05/20/17 05/20/17 Ibuprofen [Motrin] 600 mg PO Q6 05/20/17 05/20/17 Review of Systems - Review of Systems Systems not reviewed;Unavailable: Intoxicated Physical Exam Vital Signs Temp Pulse Resp BP Pulse Ox 03/01/18 21:27 97.9 F 92 H 18 91/65 L 96 Temperature: Afebrile Blood Pressure: Normal Pulse: Regular Respiratory Rate: Normal Appearance: Positive for: Well-Appearing, Non-Toxic, Comfortable Pain Distress: None Mental Status: Positive for: other (Alert, +strong odor of alcohol on pt's breath) Finger Stick Blood Glucose: 105 - Systems Exam Head: Present: Atraumatic, Normocephalic Pupils: Present: PERRL Extroacular Muscles: Present: EOMI Conjunctiva: Present: Normal Mouth: Present: Moist Mucous Membranes Neck: Present: Normal Range of Motion Respiratory/Chest: Present: Clear to Auscultation, Good Air Exchange. No: Respiratory Distress, Accessory Muscle Use Cardiovascular: Present: Regular Rate and Rhythm, Normal S1, S2. No: Murmurs Abdomen: No: Tenderness, Distention, Peritoneal Signs Back: Present: Normal Inspection Upper Extremity: Present: Normal Inspection. No: Cyanosis, Edema Lower Extremity: Present: Normal Inspection. No: Edema Neurological: Present: GCS=15, CN II-XII Intact Skin: Present: Warm, Dry, Normal Color. No: Rashes Psychiatric: Present: Alert Medical Decision Making ED Course and Treatment: 03/01/18 22:43 Plan : - Labs - FS Labs reviewed : FS 105 alcohol 102 On reevaluation, patient is more awake, alert and oriented x 3, states that she feels well and has no complaints, reports no h/o trauma or injury and wants to go home. She states that she has bus fare and knows exactly which bus she needs to take to go home. On exam, neuro exam shows no focal findings, patient is ambulating with a steady gait. Advised to follow up with primary care physician in 1-2 days without fail. Return to the emergency room at any time for any new or worsening symptoms. Patient states she fully agrees with and understands discharge instructions. States that she agrees with the plan and disposition. Verbalized and repeated discharge instructions and plan. I have given the patient opportunity to ask any additional questions. - Lab Interpretations Lab Results: 03/01/18 21:15 03/01/18 21:15 Lab Results 03/01/18 21:23: POC Glucose (mg/dL) 105 03/01/18 21:15: Alcohol, Quantitative 102 H 03/01/18 21:15: Sodium 143, Potassium 4.0, Chloride 112 H, Carbon Dioxide 24, Anion Gap 12, BUN 16, Creatinine 0.8, Est GFR ( Amer) > 60, Est GFR (Non- Af Amer) > 60, Random Glucose 84, Calcium 8.8, Total Bilirubin 0.2, AST 33, ALT 25, Alkaline Phosphatase 78, Total Protein 7.0, Albumin 3.8, Globulin 3.1, Albumin/Globulin Ratio 1.2 03/01/18 21:15: WBC 7.4, RBC 4.32, Hgb 13.6, Hct 40.5, MCV 93.8, MCH 31.5, MCHC 33.6, RDW 15.1 H, Plt Count 243, MPV 9.1, Gran % 56.4, Lymph % (Auto) 32.4, Cloud % (Auto) 6.9 H, Eos % (Auto) 3.8, Baso % (Auto) 0.5, Gran # 4.19, Lymph # (Auto) 2.4, Cloud # (Auto) 0.5, Eos # (Auto) 0.3, Baso # (Auto) 0.04 - PA / STREET AND BUILDING DECORATOR / Resident Statement MD/DO has reviewed & agrees with the documentation as recorded. Disposition/Present on Arrival - Present on Arrival Any Indicators Present on Arrival: No History of DVT/PE: No History of Uncontrolled Diabetes: No Urinary Catheter: No History of Decub. Ulcer: No History Surgical Site Infection Following: None - Disposition Have Diagnosis and Disposition been Completed?: Yes Diagnosis: Alcohol intoxication Disposition: HOME/ ROUTINE Disposition Time: 22:45 Patient Plan: Discharge Patient Problems: Current Active Problems Problem Status Onset Alcohol intoxication Acute Condition: STABLE Discharge Instructions (ExitCare): Alcohol Abuse and Alcoholism (DC) Forms: [id number] (Welsh)
[2018-03-01 23:54] VITALS: BP 102/65; PULSE 95; O2SAT 100
== END 2018-03-01 23:00 | disposition home or self-care (01) ==
LOC: ED 21:11
DX: F10.129 Alcohol abuse with intoxication, unspecified (principal); Y90.5 Blood alcohol level of 100-119 mg/100 ml
CPT/HCPCS: 80053; 82948; 85025; 99283; G0480

== ENCOUNTER 2018-03-05 21:14 | Emergency (ER) | payer MEDICARE ==
[2018-03-05 21:14] VITALS: BMI 32.0
[2018-03-05 21:27] VITALS: RESP 18; TEMP 97.8
[2018-03-05] MEDS ORDERED: Naproxen 550 mg Tab PO STA (22:42)
--- NOTE | 2018-03-05 23:40 | ED PDOC ---
Arrival/HPI - General Historian: Patient - History of Present Illness Narrative History of Present Illness (Text): 03/05/18 23:42 52 yo F presents complaining of pain to the L wrist, states that she was recently seen and evaluated at [facility] on 03/02/18 for head and L wrist injury. Patient states that she had a CT of her head and her face which was normal, she also had an XR of her L wrist/forearm which showed a fracture of the wrist bone, therefore a splint was applied. States that she is here due to pain to the L wrist. She denies any f/u to an ortho since she was last seen at [facility]. Denies any numbness, other new trauma or injury. Patient has no other complaints. <Светлана Aguirre PA-C - Last Filed: 03/06/18 00:51> <Jorge Gan - Last Filed: 03/06/18 06:04> - General Chief Complaint: Upper Extremity Problem/Injury Time Seen by Provider: 03/05/18 22:26 Past Medical History - Infectious Disease Hx of Infectious Diseases: None - Tetanus Immunization Tetanus Immunization: Unknown - Cardiac Hx Hypertension: No - Pulmonary Hx Tuberculosis: No - Neurological HX Cerebrovascular Accident: No Hx Seizures: No - Endocrine/Metabolic Hx Hypothyroidism: Yes (daughter thinks she may have) Other/Comment: pt's daughter thinks she has hypothroidism, but thyroid medicatio n not on home medication list, unknown if med list is current and daughter does not know what pharmacy the pt fills her meds - Hematological/Oncological Hx Blood Disorders: Yes Hx Cancer: No Hx Hepatitis C: Yes - Integumentary Other/Comment: dry scabs and multiple skin discoloratins b/l arms, dry scabs b/l forearms, dry scabs b/l feet and legs, redness r knee, abrasion left knee, frostbite to buttocks, redness noted to right buttock and posterior upper thigh, redness to left buttocks from frostbite, right more than left, tatoo - Musculoskeletal/Rheumatological Hx Fractures: Yes (wrist ,daughter unsure which one) Hx Unsteady Gait: Yes - Gastrointestinal Hx Gastrointestinal Disorders: Yes Hx Gastroesophageal Reflux: Yes - Genitourinary/Gynecological Hx Sexually Transmitted Diseases: No - Psychiatric Hx Psychophysiologic Disorder: Yes Hx Anxiety: Yes Hx Bipolar Disorder: Yes Hx Depression: Yes Hx Emotional Abuse: No Hx Hallucinations: No Hx Panic Disorder: No Hx Post Traumatic Stress Disorder: No Hx Psychosis: No Hx Physical Abuse: No Hx Schizophrenia: Yes Hx Sexual Abuse: No Hx Substance Use: No - Surgical History Hx Orthopedic Surgery: Yes Other/Comment: daughter thinks pt may have had sx to remove fibroids, arthoscopic knee sx over 20 yrs ago daughter unsure which one - Anesthesia Hx Anesthesia: No Hx Anesthesia Reactions: No Hx Malignant Hyperthermia: No - Suicidal Assessment Feels Threatened In Home Enviroment: No <Светлана Aguirre PA-C - Last Filed: 03/06/18 00:51> Family/Social History Family/Social History: Unknown Family HX Smoking Status: Light Smoker < 10 Cigarettes Daily Hx Alcohol Use: Yes Frequency of alcohol use: Socially Hx Substance Use: No Hx Substance Use Treatment: No <Светлана Aguirre PA-C - Last Filed: 03/06/18 00:51> Allergies/Home Meds <Светлана Aguirre PA-C - Last Filed: 03/06/18 00:51> <Jorge Gan - Last Filed: 03/06/18 06:04> Allergies/Adverse Reactions: Allergies No Known Allergies Allergy (Verified 06/07/15 08:25) Home Medications: Home Meds Medication Instructions Recorded Confirmed ALPRAZolam [Xanax] 1 mg PO TID 03/17/13 05/20/17 Carbamazepine [Tegretol] 200 mg PO BID 03/17/13 05/20/17 Ziprasidone [Geodon] 120 mg PO HS 03/17/13 05/20/17 Escitalopram [Lexapro] 20 mg PO HS 01/09/14 05/20/17 Famotidine [Pepcid] 20 mg PO BID 05/20/17 05/20/17 Ibuprofen [Motrin] 600 mg PO Q6 05/20/17 05/20/17 Review of Systems - Review of Systems Constitutional: absent: Fatigue, Fevers Musculoskeletal: Arthralgias. absent: Back Pain, Neck Pain Skin: absent: Rash, Pruritis, Skin Lesions <Светлана Aguirre PA-C - Last Filed: 03/06/18 00:51> Physical Exam Vital Signs Temp Pulse Resp BP Pulse Ox 03/05/18 21:22 97.8 F 98 H 18 117/51 L 97 Temperature: Afebrile Blood Pressure: Normal Pulse: Regular Respiratory Rate: Normal Appearance: Positive for: Well-Appearing, Non-Toxic, Comfortable (patient is sleeping comfortably in no acute distress, easily arouses) Pain Distress: None Mental Status: Positive for: Alert and Oriented X 3 - Systems Exam Head: Present: Ecchymosis (+healing ecchymosis to the R periorbital ). No: Tenderness, Swelling, Abrasion, Laceration Pupils: Present: PERRL Extroacular Muscles: Present: EOMI Conjunctiva: Present: Normal Mouth: Present: Moist Mucous Membranes Neck: Present: Normal Range of Motion. No: MIDLINE TENDERNESS Respiratory/Chest: Present: Clear to Auscultation, Good Air Exchange. No: Respiratory Distress, Accessory Muscle Use Cardiovascular: Present: Regular Rate and Rhythm, Normal S1, S2. No: Murmurs Abdomen: No: Tenderness, Distention, Peritoneal Signs Back: Present: Normal Inspection Upper Extremity: Present: Neurovascularly Intact, Capillary Refill < 2s, Other (+dirty orthoglass sugar tong splint is noted to the L forearm and wrist). No: Cyanosis, Edema, Temperature Abnormalties Lower Extremity: Present: Normal Inspection. No: Edema Neurological: Present: GCS=15, CN II-XII Intact, Speech Normal Skin: Present: Warm, Dry, Normal Color. No: Rashes Psychiatric: Present: Alert, Oriented x 3, Normal Insight, Normal Concentration <Светлана Aguirre PA-C - Last Filed: 03/06/18 00:51> Vital Signs Temp Pulse Resp BP Pulse Ox 03/06/18 00:23 89 18 116/62 100 03/05/18 21:22 97.8 F 98 H 18 117/51 L 97 <Jorge Gan - Last Filed: 03/06/18 06:04> Medical Decision Making ED Course and Treatment: 03/05/18 23:37 Plan : - XR L wrist - XR L forearm - naprosyn PO XR L wrist : +comminuted fracture of the distal radius, no dislocation. XR L forearm : +comminuted fracture of the distal radius, no dislocation. XRs reviewed. Splint removed, was noted to be tightly applied, could be a result of edema due to the fracture. On exam : L upper extremity : +edema, and healing ecchymosis to the wrist, hand extending to the fingers, +radial pulse, cap refill < 2 sec, distal sensation intact. X-ray results discussed with the patient in great detail. A new orthoglass sugar tong splint and shoulder sling applied by PA. Neurovascular intact post splint application. Patient instructed to follow-up with orthopedic referral provided in 1-2 days without fail. Advised to take medication as prescribed. Advised to rest and elevate the joint. Return to the emergency room at any time for any new or worsening symptoms. Patient states she fully agrees with and understands discharge instructions. States that she agrees with the plan and disposition. Verbalized and repeated discharge instructions and plan. I have given the patient opportunity to ask any additional questions. - RAD Interpretation Radiology Orders: 03/05/18 22:42 FOREARM LEFT [RAD] Stat WRIST, LEFT 3 VIEWS [RAD] Stat - Medication Orders Current Medication Orders: Discontinued Medications Naproxen (Anaprox Ds) 550 mg PO ONCE STA Stop: 03/05/18 22:43 Last Admin: 03/05/18 22:51 Dose: 550 mg <Светлана Aguirre PA-C - Last Filed: 03/06/18 00:51> ED Course and Treatment: 03/06/18 06:04 The documented history was done by the physician molder. The documented physical exam was done by the physician molder. The documented procedures were done by the physician molder, I was available for consultation during the PA/SEED SERVICE ADVISOR evaluation. The chart was reviewed by me, and I agree with the management and plan. - RAD Interpretation Radiology Orders: 03/05/18 22:42 FOREARM LEFT [RAD] Stat WRIST, LEFT 3 VIEWS [RAD] Stat - Medication Orders Current Medication Orders: Discontinued Medications Acetaminophen (Tylenol 325mg Tab) 975 mg PO STAT STA Stop: 03/06/18 00:11 Last Admin: 03/06/18 00:22 Dose: Not Given Non-Admin Reason: Patient Refused Lidocaine (Lidoderm) 1 ea TD STAT STA Stop: 03/06/18 00:11 Last Admin: 03/06/18 00:21 Dose: Not Given Non-Admin Reason: Patient Refused Naproxen (Anaprox Ds) 550 mg PO ONCE STA Stop: 03/05/18 22:43 Last Admin: 03/05/18 22:51 Dose: 550 mg <Jorge Gan - Last Filed: 03/06/18 06:04> - PA / SEED SERVICE ADVISOR / Resident Statement GIL has reviewed & agrees with the documentation as recorded. <Светлана Aguirre PA-C - Last Filed: 03/06/18 00:51> Disposition/Present on Arrival - Present on Arrival Any Indicators Present on Arrival: No History of DVT/PE: No History of Uncontrolled Diabetes: No Urinary Catheter: No History of Decub. Ulcer: No History Surgical Site Infection Following: None - Disposition Have Diagnosis and Disposition been Completed?: Yes Disposition Time: 23:30 Patient Plan: Discharge <Светлана Aguirre PA-C - Last Filed: 03/06/18 00:51> <Jorge Gan - Last Filed: 03/06/18 06:04> - Disposition Diagnosis: Left wrist fracture Disposition: HOME/ ROUTINE Condition: STABLE Discharge Instructions (ExitCare): Cast Care, Wrist Fracture (DC) Referrals: Jaclyn Nguyen MD [Primary Care Provider] - Follow up with primary Baudilio Yi DO [Staff Provider] - Follow up with primary Forms: [employer] ([place])
[2018-03-06] MEDS ORDERED: Lidocaine 5% Patch TD STA (00:10)
[2018-03-06 00:49] VITALS: BP 116/62; PULSE 89; O2SAT 100
--- NOTE | 2018-03-06 13:27 | RAD ---
Date of service: 03/05/2018 PROCEDURE: Radiographs of the Left Forearm HISTORY: pain, h/o fracture COMPARISON: None available. TECHNIQUE: Frontal and lateral views obtained. FINDINGS: BONES: Major fracture fragments are anatomically aligned. JOINT SPACES: Unremarkable. OTHER FINDINGS: Limitations of the current study: Detail obscured by overlying fiberglass cast. IMPRESSION: Satisfactory alignment of major fracture fragments distal left radius.
== END 2018-03-06 00:23 | disposition home or self-care (01) ==
LOC: ED 21:14
DX: S52.502D Unspecified fracture of the lower end of left radius, subsequent encounter for closed fracture with routine healing (principal); X58.XXXD Exposure to other specified factors, subsequent encounter

== ENCOUNTER 2018-03-14 16:53 | Emergency (ER) | payer MEDICARE ==
--- NOTE | 2018-03-14 17:05 | ED PDOC ---
Arrival/HPI - General Time Seen by Provider: 03/14/18 16:55 Historian: Patient - History of Present Illness Narrative History of Present Illness (Text): 03/14/18 17:00 52 y/o female, pmh including recent lt. wrist fracture about 2-3 weeks ago, psychiatric history of anxiety/schizophrenia/biplar, post menopausal, nkda, c/o lt. wrist pain x 2-3 weeks with left distal radius fracture, scheduled to see the orthopedic, here in the ER and splint removed by herself at home prior to arrival, stated that she needs pain medication, no new injury or fall, no palpitation, no rash, no other medical or psychological complaints. Past Medical History - Provider Review Nursing Documentation Reviewed: Yes - Infectious Disease Hx of Infectious Diseases: None - Tetanus Immunization Tetanus Immunization: Unknown - Cardiac Hx Hypertension: No - Pulmonary Hx Tuberculosis: No - Neurological HX Cerebrovascular Accident: No Hx Seizures: No - Endocrine/Metabolic Hx Hypothyroidism: Yes (daughter thinks she may have) Other/Comment: pt's daughter thinks she has hypothroidism, but thyroid medication not on home medication list, unknown if med list is current and daughter does not know what pharmacy the pt fills her meds - Hematological/Oncological Hx Blood Disorders: Yes Hx Cancer: No Hx Hepatitis C: Yes - Integumentary Other/Comment: dry scabs and multiple skin discoloratins b/l arms, dry scabs b/l forearms, dry scabs b/l feet and legs, redness r knee, abrasion left knee, frostbite to buttocks, redness noted to right buttock and posterior upper thigh, redness to left buttocks from frostbite, right more than left, tatoo - Musculoskeletal/Rheumatological Hx Fractures: Yes (wrist ,daughter unsure which one) Hx Unsteady Gait: Yes - Gastrointestinal Hx Gastrointestinal Disorders: Yes Hx Gastroesophageal Reflux: Yes - Genitourinary/Gynecological Hx Sexually Transmitted Diseases: No - Psychiatric Hx Psychophysiologic Disorder: Yes Hx Anxiety: Yes Hx Bipolar Disorder: Yes Hx Depression: Yes Hx Emotional Abuse: No Hx Hallucinations: No Hx Panic Disorder: No Hx Post Traumatic Stress Disorder: No Hx Psychosis: No Hx Physical Abuse: No Hx Schizophrenia: Yes Hx Sexual Abuse: No Hx Substance Use: No - Surgical History Hx Orthopedic Surgery: Yes Other/Comment: daughter thinks pt may have had sx to remove fibroids, arthoscopic knee sx over 20 yrs ago daughter unsure which one - Anesthesia Hx Anesthesia: No Hx Anesthesia Reactions: No Hx Malignant Hyperthermia: No - Suicidal Assessment Feels Threatened In Home Enviroment: No Family/Social History - Physician Review Nursing Documentation Reviewed: Yes Family/Social History: Unknown Family HX Smoking Status: Light Smoker < 10 Cigarettes Daily Hx Alcohol Use: Yes Hx Substance Use: No Hx Substance Use Treatment: No Allergies/Home Meds Allergies/Adverse Reactions: Allergies No Known Allergies Allergy (Verified 06/07/15 08:25) Home Medications: Home Meds Medication Instructions Recorded Confirmed ALPRAZolam [Xanax] 1 mg PO TID 03/17/13 05/20/17 Carbamazepine [Tegretol] 200 mg PO BID 03/17/13 05/20/17 Ziprasidone [Geodon] 120 mg PO HS 03/17/13 05/20/17 Escitalopram [Lexapro] 20 mg PO HS 01/09/14 05/20/17 Famotidine [Pepcid] 20 mg PO BID 05/20/17 05/20/17 Ibuprofen [Motrin] 600 mg PO Q6 05/20/17 05/20/17 Review of Systems - Review of Systems Constitutional: absent: Fatigue, Fevers Eyes: absent: Vision Changes ENT: absent: Hearing Changes Respiratory: absent: SOB, Cough Cardiovascular: absent: Chest Pain Gastrointestinal: absent: Abdominal Pain, Nausea, Vomiting Musculoskeletal: Arthralgias. absent: Back Pain, Neck Pain, Joint Swelling, Myalgias Skin: absent: Rash, Pruritis Neurological: absent: Headache, Dizziness Endocrine: absent: Diaphoresis, Polyuria Psychiatric: absent: Anxiety, Depression, Suicidal Ideation Physical Exam Pain Distress: Moderate - Systems Exam Head: Present: Atraumatic, Normocephalic Pupils: Present: PERRL Extroacular Muscles: Present: EOMI Conjunctiva: Present: Normal Mouth: Present: Moist Mucous Membranes Neck: Present: Normal Range of Motion Respiratory/Chest: Present: Clear to Auscultation, Good Air Exchange. No: Respiratory Distress, Accessory Muscle Use Cardiovascular: Present: Regular Rate and Rhythm, Normal S1, S2. No: Murmurs Abdomen: No: Tenderness, Distention, Peritoneal Signs Back: Present: Normal Inspection Upper Extremity: Present: Normal Inspection, Other (LUE: no visible splint, +ttp on the distal radius region, no scaphoid tenderness, no cellulitis or abrasion, FROM without limitation but with pain, sensation intact, motor 5/5, +radial pulse, capillary refill< 2 seconds, neurovascular intact. ). No: Cyanosis, Edema Lower Extremity: Present: Normal Inspection. No: Edema Neurological: Present: GCS=15, CN II-XII Intact, Speech Normal Skin: Present: Warm, Dry, Normal Color. No: Rashes Psychiatric: Present: Alert, Oriented x 3, Normal Insight, Normal Concentration Medical Decision Making ED Course and Treatment: 03/14/18 17:09 -Lt. wrist xray -Toradol IM for pain and percocet -Will re apply the sugar tongue splint. 03/14/18 17:00 -Lt. wrist xray show There is redemonstration of an acute comminuted impacted intra-articular fracture in the distal radius. There is periarticular demineralization. Bone alignment is normal. -Lt. arm sugar tongue splint applied by me with neurovascular intact, pain controlled, xray explained with the patient and advised orthopedic follow up. -Discharge home with sugartongue splint, sling, acetaminophen, follow up with your own pmd and Dr. Longo as you plan to see in 2 days, return to the ER for any new or worsening signs or symptoms. - RAD Interpretation Radiology Orders: PROCEDURE: Left Wrist Radiographs. HISTORY: Left wrist fracture COMPARISON: 03/05/2018 FINDINGS: BONES: There is redemonstration of an acute comminuted impacted intra-articular fracture in the distal radius. There is periarticular demineralization. Bone alignment is normal. JOINTS: Normal. No dislocation. SOFT TISSUES: Normal. OTHER FINDINGS: None. IMPRESSION: Acute comminuted impacted intra-articular fracture in the distal radius. No dislocation. Shipbuilding Draftsperson: Radiologist - PA / HAZARDOUS MATERIALS HANDLER / Resident Statement MD/DO has reviewed & agrees with the documentation as recorded. Disposition/Present on Arrival - Present on Arrival Any Indicators Present on Arrival: No History of DVT/PE: No History of Uncontrolled Diabetes: No Urinary Catheter: No History of Decub. Ulcer: No History Surgical Site Infection Following: None - Disposition Have Diagnosis and Disposition been Completed?: Yes Diagnosis: Cast in place on extremity, Pain management, Wrist fracture Disposition: HOME/ ROUTINE Disposition Time: 17:10 Patient Plan: Discharge Condition: IMPROVED Additional Instructions: -Discharge home with sugartongue splint, sling, acetaminophen, follow up with your own pmd and Dr. Longo as you plan to see in 2 days, return to the ER for any new or worsening signs or symptoms. Prescriptions: Acetaminophen [Tylenol Extra Strength] 500 mg PO QID PRN #30 tablet PRN Reason: Other Referrals: Baudilio Yi DO [Staff Provider] - Follow up with primary [facility] [Outside] - Follow up with primary Forms: WORK NOTE
[2018-03-14 17:07] VITALS: RESP 18; TEMP 97.9
[2018-03-14 17:12] VITALS: BMI 35.6
[2018-03-14] MEDS ORDERED: Oxycodone/Acetaminophen 5/325 mg Tab PO STA (17:59)
[2018-03-14 18:42] VITALS: BP 134/70; PULSE 82; O2SAT 99
--- NOTE | 2018-03-15 06:07 | RAD ---
Date of service: 03/14/2018 PROCEDURE: Left Wrist Radiographs. HISTORY: Left wrist fracture COMPARISON: 03/05/2018 FINDINGS: BONES: There is redemonstration of an acute comminuted impacted intra-articular fracture in the distal radius. There is periarticular demineralization. Bone alignment is normal. JOINTS: Normal. No dislocation. SOFT TISSUES: Normal. OTHER FINDINGS: None. IMPRESSION: Acute comminuted impacted intra-articular fracture in the distal radius. No dislocation.
== END 2018-03-14 18:42 | disposition home or self-care (01) ==
LOC: ED 16:53
DX: S52.502D Unspecified fracture of the lower end of left radius, subsequent encounter for closed fracture with routine healing (principal); X58.XXXD Exposure to other specified factors, subsequent encounter
CPT/HCPCS: 73110; 96372; 99284; J1885

== ENCOUNTER 2018-09-15 07:40 | Outpatient (CLI) | payer MEDICARE | END 2018-09-15 07:41 | disposition home or self-care (01) | LOC: CARDIO 07:40 | DX: R07.89 Other chest pain (principal); F17.200 Nicotine dependence, unspecified, uncomplicated ==